=== PATIENT | male | born 1950 | race African-American/Black ===

== ENCOUNTER 2022-02-14 17:17 | Emergency (ER) | payer MEDICARE, OTHER ==
[~2022-02-14] VITALS: Ht 172.7 cm; Wt 118.0 kg
[~2022-02-14 17:17] MED LIST: ASPI325T4 PO; ATEN1TAB38 PO; HYDR25TA4 PO; SIMV10TA84 PO
[2022-02-14] MEDS ORDERED: SODIUM CHLORIDE 0.9% 1,000 ML IV ONE (19:45)
[2022-02-14] MEDS ORDERED: HYDROmorphone HCL 2 MG/ML VL/or syr IV ONE (19:45)
[2022-02-14 20:12] LABS: Basophils # (auto) 0 10 ^3/uL (0-0.2); Basophils % (auto) 0.2 % (0.0-2.0); Eosinophils # (auto) 0 10 ^3/uL (0-0.8); Hematocrit 47.5 % (41.0-53.0); Hemoglobin 15.9 g/dL (13.5-17.5); Lymphocytes % (auto) 7.6 % (10.0-50.0); Mean Corpuscular Hemoglobin 30.1 pg (28.0-32.0); Mean Corpuscular Hgb Conc. 33.6 g/dL (32.0-36.0); Mean Corpuscular Volume 89.6 fL (80.0-100.0); Monocytes # (auto) 1.4 10 ^3/uL (0-1.3); Monocytes % (auto) 10.9 % (0.0-12.0); Neutrophils # (auto) 10.7 10 ^3/uL (1.6-8.6); Neutrophils % (auto) 81.3 % (37.0-80.0); Nucleated Red Blood Cells % 0.1 %; Red Cell Distribution Width 14.3 % (11.8-14.3); White Blood Cell 13.1 10^3/uL (4.4-10.8)
[2022-02-14] MEDS ORDERED: IOHEXOL 350 MG/ML 100ML IJ ONE (20:15)
[2022-02-14 21:13] LABS: Albumin 3.9 g/dL (3.4-5.0); BUN/Creatinine Ratio 10.7; Bilirubin, Total 3.2 mg/dL (0.2-1.0); Calcium 9.6 mg/dL (8.5-10.1); Potassium 3.7 mmol/L (3.5-5.1); Total Protein 8.3 g/dL (6.4-8.2)
[2022-02-14] MEDS ORDERED: HYDR-4798 PO (21:37)
[2022-02-14] MEDS ORDERED: KETOROLAC TROMETH 30 MG/ML 1ML VIAL IV ONE (22:00)
[2022-02-14 22:41] VITALS: BP 117/61
== END 2022-02-14 22:43 | disposition home or self-care (01) ==
LOC: ER 17:17
DX: M79.18 Myalgia, other site (principal); E78.2 Mixed hyperlipidemia; I10 Essential (primary) hypertension; Z88.0 Allergy status to penicillin; Z79.899 Other long term (current) drug therapy; Z90.49 Acquired absence of other specified parts of digestive tract; Z90.89 Acquired absence of other organs
CPT/HCPCS: 36415; 72100; 74177; 80053; 83690; 85025; 85379; 93005; 96361; 96374; 99285; J1885; J7030; Q9967